=== PATIENT | male | born 1990 | race Caucasian/White ===

== ENCOUNTER → 2016-08-23 | Outpatient (CLI) | payer OTHER ==
[~2016-08-23] MED LIST: ACET325T96 PO; GUAI100S18; MENT1LOZ29
--- NOTE | 2016-08-23 11:10 | DIAGNOSTIC IMAGING REPORT ---
MRI OF THE LEFT SHOULDER CLINICAL HISTORY: Left shoulder pain. COMPARISON STUDY: No priors. TECHNIQUE: MRI of the left shoulder was performed utilizing various T1 and T2 weighted sequences in the axial, sagittal, coronal planes. IV contrast was not administered for this examination. Note that interpretation is suboptimal without plain film correlate. Several sequences were repeated due to motion artifact. FINDINGS: Rotator cuff: There is mild tendinopathy of the supraspinatous and intraspinous tendons. No discrete tearing is seen. The teres minor and subscapularis tendons are intact. There is no subacromial or subdeltoid bursal fluid. The acromioclavicular joint is unremarkable. Biceps tendon: The long head of the biceps tendon is normal in signal intensity and located within the bicipital groove. The anchor is maintained. Labrum: Grossly intact. Shoulder joint: There is no joint effusion. The articular cartilage over the glenoid is well maintained. Normal marrow signal intensity is preserved of the visualized osseous structures. A bone island is noted in the humeral head. Musculature and soft tissues: The musculature of the shoulder is normal in bulk and signal intensity. No atrophy is seen. IMPRESSION: 1. Mild rotator cuff tendinopathy as above. No definite rotator cuff tear is identified. 2. The bony structures demonstrate normal marrow signal intensity. 3. The long head of the biceps tendon is intact. Electronically signed by: Gee Martinez M.D. 08/23/2016 11:08 AM Dictated Date/Time: 08/23/2016 10:59 AM
== END | disposition home or self-care (01) ==
LOC: C.MRIBC 09:37
PROVIDERS: ATTEND Preventive Medicine Occupational Medicine
DX: S43.402A Unspecified sprain of left shoulder joint, initial encounter (principal); X58.XXXA Exposure to other specified factors, initial encounter